=== PATIENT | female | born 1935 | race Caucasian/White ===

== ENCOUNTER → 2022-01-23 | Outpatient (CLI) | payer MEDICARE ==
[~2022-01-23] MED LIST: ASPIR 8181 MG PO; BYSTOLIC10 MG PO; ETODOLAC400 MG PO; FOSAMAX70 MG PO; NORCO 7.5-3251 EACH PO; NORVASC5 MG PO; OYSTER SHELL C1 EACH PO; PRAVACHOL40 MG PO
== END ==
LOC: MRI 14:02
PROVIDERS: ATTEND Family Medicine
DX: M48.061 Spinal stenosis, lumbar region without neurogenic claudication (principal); G58.8 Other specified mononeuropathies
CPT/HCPCS: 72148